=== PATIENT | female | born 1960 ===

== ENCOUNTER 2017-09-25 10:09 | Emergency (ER) | payer MEDICAID ==
[2017-09-25 10:14] VITALS: TEMP 98
[2017-09-25 10:15] VITALS: BMI 35.5
[2017-09-25] MEDS ORDERED: Sodium Chloride 0.9% 1,000 ML IV SCH (10:45)
[2017-09-25 10:59] LABS: BASO # 0.1 K/uL (0.0-0.2); BASO % 0.9 % (0.0-2.0); EOS # 0.2 K/uL (0.0-0.7); EOS % 2.5 % (0.0-4.0); HEMOGLOBIN 12.7 g/dL (12.0-16.0); LYMPH # 1.5 K/uL (1.0-4.3); LYMPH % 20.1 % (20.0-40.0); MEAN CELL VOLUME 87.7 fl (81.0-99.0); MEAN CORPUSCULAR HEMOGLOBIN 29.2 pg (27.0-31.0); MEAN CORPUSCULAR HGB CONC 33.3 g/dL (33.0-37.0); MEAN PLATELET VOLUME 9.8 fl (7.2-11.7); MONO # 0.5 K/uL (0.0-0.8); MONO % 7.2 % (0.0-10.0); NEUT # 5.2 K/uL (1.8-7.0); NEUT % 69.3 % (50.0-75.0); NRBC % 0.1 % (0.0-0.0); RBC 4.35 Mil/uL (3.80-5.20); RED CELL DISTRIBUTION WIDTH 15.1 % (11.5-14.5); WHITE BLOOD COUNT 7.5 K/uL (4.8-10.8)
[2017-09-25 11:15] LABS: ALB/GLOB RATIO 1.1 (1.0-2.1); ALBUMIN 3.8 g/dL (3.5-5.0); ALT/SGPT 29 U/L (9-52); AST/SGOT 18 U/L (14-36); BLOOD UREA NITROGEN 21 mg/dl (7-17); CALCIUM 8.9 mg/dL (8.4-10.2); GFR AFRICAN-AMERICAN > 60; GFR NON-AFRICAN AMERICAN > 60; LIPASE 95 U/L (23-300)
[2017-09-25] MEDS ORDERED: Iohexol 300 100 ML IJ ONE (11:41)
[2017-09-25] MEDS ORDERED: Sodium Chloride 0.9% 50 ML IV ONE (11:42)
--- NOTE | 2017-09-25 11:45 | US ---
HISTORY: RUQ tenderness, h/o gallstones COMPARISON: None. TECHNIQUE: Sonographic evaluation of the right upper quadrant of the abdomen. FINDINGS: LIVER: Measures 17.7 cm in length. Normal echogenicity of the liver parenchyma. No mass. No intrahepatic bile duct dilatation. GALLBLADDER: Gallstone is noted. No evidence of significant gallbladder wall thickening or pericholecystic fluid to suggest acute cholecystitis. COMMON BILE DUCT: Measures 2 mm. No stones. No dilatation. PANCREAS: Unremarkable as visualized. No mass. No ductal dilatation. RIGHT KIDNEY: Measures 10.5 x 3.7 x 4.6 cm in length. Normal echogenicity. No calculus, mass, or hydronephrosis. AORTA: No aneurysmal dilatation. IVC: Unremarkable. OTHER FINDINGS: None . IMPRESSION: Gallstone without definite ultrasound evidence of acute cholecystitis.
[2017-09-25 12:14] LABS: SQUAMOUS EPITHIAL 5 /hpf (0-5); URINE BILIRUBIN NEGATIVE (NEGATIVE); URINE BLOOD SMALL (NEGATIVE); URINE CLARITY CLEAR (Clear); URINE COLOR YELLOW (YELLOW); URINE GLUCOSE (UA) NEG (Normal); URINE LEUKOCYTE ESTERASE NEG Leu/uL (Negative); URINE PROTEIN NEGATIVE (NEGATIVE); URINE UROBILINOGEN 0.2-1.0 mg/dL (0.2-1.0)
--- NOTE | 2017-09-25 12:30 | CT ---
PROCEDURE: CT Abdomen and Pelvis with contrast HISTORY: diffuse abdominal pain COMPARISON: None. TECHNIQUE: Contrast dose: 100 cc of Omnipaque 300. Axial and reformatted coronal and sagittal CT images of the abdomen and pelvis were obtained after IV contrast administration Radiation dose: Total exam DLP = 984.91 mGy-cm. This CT exam was performed using one or more of the following dose reduction techniques: Automated exposure control, adjustment of the mA and/or kV according to patient size, and/or use of iterative reconstruction technique. FINDINGS: LOWER THORAX: Unremarkable. LIVER: Unremarkable. No gross lesion or ductal dilatation. GALLBLADDER AND BILE DUCTS: Gallstone is noted without evidence of acute cholecystitis PANCREAS: Unremarkable. No gross lesion or ductal dilatation. SPLEEN: Unremarkable. ADRENALS: Unremarkable. No mass. KIDNEYS AND URETERS: Unremarkable. No hydronephrosis. No solid mass. VASCULATURE: Unremarkable. No aortic aneurysm. BOWEL: Colonic diverticulosis are seen without evidence of diverticulitis. No evidence of bowel obstruction. APPENDIX: Normal appendix. PERITONEUM: Unremarkable. No free fluid. No free air. LYMPH NODES: Unremarkable. No enlarged lymph nodes. BLADDER: Unremarkable. REPRODUCTIVE: Unremarkable. BONES: Patient status post right hip replacement OTHER FINDINGS: Limited evaluation of the pelvis due to streak artifact from the right hip replacement. IMPRESSION: Gallstone without evidence of acute cholecystitis. No evidence of pancreatitis or appendicitis. Colonic diverticulosis without evidence of diverticulitis. The assessment of the pelvis is somewhat limited due to streak artifacts from the patient's right hip hardware. If clinically warranted further assessment by ultrasound may be obtained.
[2017-09-25 13:18] VITALS: BP 115/72; PULSE 68; RESP 18; O2SAT 99
--- NOTE | 2017-09-25 13:29 | ED PDOC ---
HPI: Abdomen Chief Complaint (Nursing): Abdominal Pain Chief Complaint (Provider): Abdominal Pain and Facial Pain Past Medical History Vital Signs: Last Vital Signs Temp 98 F 09/25/17 10:13 Pulse 68 09/25/17 13:17 Resp 18 09/25/17 13:17 BP 115/72 09/25/17 13:17 Pulse Ox 99 09/25/17 13:17 - Medical History PMH: Gall Bladder Disease (gallstones) - Home Medications Home Medications: Ambulatory Orders Medication Instructions Recorded Clindamycin [Cleocin] 300 mg PO Q6 #20 cap 09/25/17 Ibuprofen [Motrin] 600 mg PO Q6 PRN #20 tab 09/25/17 Ondansetron ODT [Zofran ODT] 4 mg PO Q8 PRN #20 odt 09/25/17 - Allergies Allergies/Adverse Reactions: Allergies Allergy/AdvReac Type Severity Reaction Status Date / Time Penicillins Allergy RASH Verified 09/25/17 10:22 - Laboratory Results Result Diagrams: 09/25/17 10:55 09/25/17 10:55 - ECG O2 Sat by Pulse Oximetry: 99 Medical Decision Making Medical Decision Making: Time: 10:39 Initial Plan: --CT abd & pelvis --CMP --Lipase --CBC with differentials --NS 250 mls/hr --Zofran 4 mg IVP --Urine Culture --IV insertion Scribe Attestation: Documented by Dasia Rose, acting as a scribe for Paramjit Renee DO Provider Scribe Attestation: All medical record entries made by the Scribe were at my direction and personally dictated by me. I have reviewed the chart and agree that the record accurately reflects my personal performance of the history, physical exam, medical decision making, and the department course for this patient. I have also personally directed, reviewed, and agree with the discharge instructions and disposition. Disposition - Clinical Impression Clinical Impression: Gallstone - Disposition Referrals: [facility] Bryan Rebekaarcelia, [Non-Staff] - Condition: GOOD Additional Instructions: Thank you for letting us take care of you today. The emergency medical care you received today was directed at your acute symptoms. If you were prescribed any medication, please fill it and take as directed. It may take several days for your symptoms to resolve. Return to the Emergency Department if your symptoms worsen, do not improve, or if you have any other problems. Please contact your doctor or call one of the physicians/clinics you have been referred to that are listed on the Patient Visit Information form that is included in your discharge packet. Bring any paperwork you were given at discharge with you along with any medications you are taking to your follow up visit. Our treatment cannot replace ongoing medical care by a primary care provider (PCP) outside of the emergency department. Thank you for allowing the [facility] team to be part of your care today. You can take over the counter Imodium for your diarrhea. Please follow directions on bottle. Follow up with your primary care doctor in 2-3 days for re-evaluation and further management. Prescriptions: Clindamycin [Cleocin] 300 mg PO Q6 #20 cap Ibuprofen [Motrin] 600 mg PO Q6 PRN #20 tab PRN Reason: Pain, Moderate (4-7) Ondansetron ODT [Zofran ODT] 4 mg PO Q8 PRN #20 odt PRN Reason: Nausea/Vomiting Instructions: Gallstones (DC) Forms: [employer] (Armenian)
--- NOTE | 2017-09-25 13:36 | ED PDOC ---
HPI: General Adult Chief Complaint (Nursing): Abdominal Pain Chief Complaint (Provider): Abdominal pain and facial pain History Per: Patient History/Exam Limitations: no limitations Onset/Duration Of Symptoms: Days (x2 weeks) Current Symptoms Are (Timing): Still Present Additional Complaint(s): 57 year old female with history of gallstones presents to the ED with right facial pain onset 2 weeks and diffuse abdominal pain. Patient reports the facial pain started after 2 teeth were pulled out 2 weeks ago. She was seen at [facility] yesterday for the same complaints, has no results from any labs or CTs conducted and was discharged. Patient has mild nausea and occasional episodes of diarrhea but denies vomiting, hematuria, hematochezia, dysuria, or any other medical complaints. PMD: Dr. Zak Mitchell Past Medical History Reviewed: Historical Data, Nursing Documentation, Vital Signs Vital Signs: Last Vital Signs Temp 98 F 09/25/17 10:13 Pulse 68 09/25/17 13:17 Resp 18 09/25/17 13:17 BP 115/72 09/25/17 13:17 Pulse Ox 99 09/25/17 13:42 - Medical History PMH: Gall Bladder Disease (gallstones) - Surgical History Surgical History: No Surg Hx - Family History Family History: States: Unknown Family Hx - Social History Alcohol: Other (yes) - Home Medications Home Medications: Ambulatory Orders Medication Instructions Recorded Clindamycin [Cleocin] 300 mg PO Q6 #20 cap 09/25/17 Ibuprofen [Motrin] 600 mg PO Q6 PRN #20 tab 09/25/17 Ondansetron ODT [Zofran ODT] 4 mg PO Q8 PRN #20 odt 09/25/17 - Allergies Allergies/Adverse Reactions: Allergies Allergy/AdvReac Type Severity Reaction Status Date / Time Penicillins Allergy RASH Verified 09/25/17 10:22 Review of Systems ROS Statement: Except As Marked, All Systems Reviewed And Found Negative Gastrointestinal: Positive for: Nausea (mild), Abdominal Pain, Diarrhea ( occasional episodes). Negative for: Vomiting, Hematochezia Genitourinary Female: Negative for: Dysuria, Hematuria Musculoskeletal: Positive for: Other (facial pain) Physical Exam - Reviewed Nursing Documentation Reviewed: Yes Vital Signs Reviewed: Yes - Physical Exam Appears: Positive for: Non-toxic, No Acute Distress Head Exam: Positive for: ATRAUMATIC, NORMOCEPHALIC Skin: Positive for: Normal Color, Warm, Dry ENT: Positive for: Other (mild tenderness to the anterior lymph nodes, clear throat, ) Cardiovascular/Chest: Positive for: Regular Rate, Rhythm Respiratory: Positive for: CNT, Normal Breath Sounds Extremity: Positive for: Normal ROM (upper and lower extremities) Neurologic/Psych: Positive for: Alert, Oriented (x3) - Laboratory Results Result Diagrams: 09/25/17 10:55 09/25/17 10:55 - ECG O2 Sat by Pulse Oximetry: 99 (RA) Pulse Ox Interpretation: Normal Medical Decision Making Medical Decision Making: Time: 10:39 Initial Plan: --CT abd & pelvis --CMP --Lipase --CBC with differentials --NS 250 mls/hr --Zofran 4 mg IVP --Urine Culture --IV insertion Scribe Attestation: Documented by Dasia Rose, acting as a scribe for Paramjit Renee DO Provider Scribe Attestation: All medical record entries made by the Scribe were at my direction and personally dictated by me. I have reviewed the chart and agree that the record accurately reflects my personal performance of the history, physical exam, medical decision making, and the department course for this patient. I have also personally directed, reviewed, and agree with the discharge instructions and disposition. Disposition - Clinical Impression Clinical Impression: Gallstone - Disposition Referrals: [facility] [Non-Staff] - Disposition Time: 12:15 Condition: GOOD Additional Instructions: Thank you for letting us take care of you today. The emergency medical care you received today was directed at your acute symptoms. If you were prescribed any medication, please fill it and take as directed. It may take several days for your symptoms to resolve. Return to the Emergency Department if your symptoms worsen, do not improve, or if you have any other problems. Please contact your doctor or call one of the physicians/clinics you have been referred to that are listed on the Patient Visit Information form that is included in your discharge packet. Bring any paperwork you were given at discharge with you along with any medications you are taking to your follow up visit. Our treatment cannot replace ongoing medical care by a primary care provider (PCP) outside of the emergency department. Thank you for allowing the [facility] team to be part of your care today. You can take over the counter Imodium for your diarrhea. Please follow directions on bottle. Follow up with your primary care doctor in 2-3 days for re-evaluation and further management. Prescriptions: Clindamycin [Cleocin] 300 mg PO Q6 #20 cap Ibuprofen [Motrin] 600 mg PO Q6 PRN #20 tab PRN Reason: Pain, Moderate (4-7) Ondansetron ODT [Zofran ODT] 4 mg PO Q8 PRN #20 odt PRN Reason: Nausea/Vomiting Instructions: Gallstones (DC) Forms: M[employer] (German)
== END 2017-09-25 13:42 | disposition home or self-care (01) ==
LOC: H.ER 10:09
DX: K80.20 Calculus of gallbladder without cholecystitis without obstruction (principal); Z88.0 Allergy status to penicillin; R19.7 Diarrhea, unspecified
CPT/HCPCS: 74177; 76705; 80053; 81003; 83690; 85025; 87086; 96374; 96375; 99283; J1885; J2405; J7030; Q9967